=== PATIENT | female | born 1970 | race Caucasian/White ===

== ENCOUNTER 2019-12-04 04:56 | Emergency (ER) | payer OTHER ==
[~2019-12-04] VITALS: Ht 157.5 cm; Wt 94.3 kg
--- NOTE | 2019-12-04 05:00 | NUR ---
PT AAOX4. BIB EMS C/O HEARING VOICES "TELLING ME TO KILL MYSELF". ALSO C/O ABD PAIN. PT PALCED IN GOWN, ON MONITOR, AND PULSE OX. BELONINGS PLACED IN LOCKER. SITTER AT BEDSIDE. AWAITING MD FOR EVAL.
--- NOTE | 2019-12-04 05:11 | NUR ---
COMMISSION SPECIALIST AT BEDSIDE
[2019-12-04 05:21] LABS: BASOPHILS # (AUTO) 0.1 /CMM (0.0-0.2); BASOPHILS % (AUTO) 0.9 % (0.0-2.0); EOSINOPHILS % (AUTO) 0.3 % (0.0-6.0); HEMATOCRIT 43 % (33-45); HEMOGLOBIN 14.2 g/dL (11.5-14.8); LYMPHOCYTES # (AUTO) 1.7 /CMM (0.8-4.8); LYMPHOCYTES % (AUTO) 23.7 % (20.0-44.0); MEAN CORPUSCULAR HGB CONC 33 g/dl (31.0-36.0); MEAN CORPUSCULAR VOLUME 90 fL (82-100); MONOCYTES # (AUTO) 0.6 /CMM (0.1-1.30); NEUTROPHILS # (AUTO) 4.8 /CMM (1.8-8.9); NEUTROPHILS % (AUTO) 66.1 % (43.0-81.0); PLATELET COUNT (AUTO) 324 /CMM (150-450); RED BLOOD CELL COUNT(AUTO) 4.72 MIL/uL (4.0-5.2); WHITE BLOOD COUNT (AUTO) 7.2 K/uL (4.3-11.0)
[2019-12-04 05:37] LABS: CALCIUM, SERUM 9.8 mg/dL (8.5-10.1); CARBON DIOXIDE 28 mmol/L (21-32); CHLORIDE 103 mmol/L (98-107); CREATININE 0.7 mg/dL (0.6-1.3); GLUCOSE 120 mg/dL (74-106); POTASSIUM 3.5 mmol/L (3.5-5.1); SODIUM SERUM 142 mmol/L (136-145); UREA NITROGEN, BLOOD 8 mg/dL (7-18)
[2019-12-04 05:43] LABS: ALANINE AMINOTRANSFERASE 18 U/L (12-78); ALBUMIN 3.8 g/dL (3.4-5.0); ALKALINE PHOSPHATASE 80 U/L (46-116); ASPARTATE AMINOTRANSFERASE 22 U/L (15-37); BILIRUBIN,DIRECT 0.1 mg/dL (0.0-0.2); BILIRUBIN,TOTAL 0.6 mg/dL (0.2-1.0); TOTAL PROTEIN, SERUM 7.7 g/dL (6.4-8.2)
[2019-12-04 05:46] LABS: ACETAMINOPHEN 0 ug/ml (10-30); ALCOHOL, BLOOD < 3 mg/dL (0-0)
[2019-12-04] MEDS ORDERED: OLANZAPINE 5 MG TABLET PO ONE ×2 (06:30→10:30)
[2019-12-04] MEDS ORDERED: OLANZAPINE 5 MG TABLET ONE ×2 (06:37→10:12)
[2019-12-04 06:54] LABS: APPEARANCE,URINE CLEAR (CLEAR); BILIRUBIN,URINE NEGATIVE (NEGATIVE); BLOOD, URINE TRACE-INTA Ery/uL (NEGATIVE); COLOR,URINE YELLOW (YELLOW); KETONES,URINE NEGATIVE (NEGATIVE); LEUKOCYTE ESTERASE ,URINE NEGATIVE (NEGATIVE); NITRITE, URINE POSITIVE (NEGATIVE); PROTEIN,URINE NEGATIVE (NEGATIVE); UGLUCOSE NEGATIVE (NEGATIVE); UROBILINOGEN,URINE 0.2 EU/dL (0.2)
--- NOTE | 2019-12-04 07:02 | NUR ---
Patient is resting comfortably in bed. Easily aroused. VSS.
[2019-12-04 07:55] LABS: BACTERIA,URINE 3+ /HPF (None Seen); MUCUS,URINE Moderate /LPF (None Seen); RBC,URINE 0-2 /HPF (0-2); SQUAMOUS EPITHELIAL CELL,UR Many /HPF (None Seen); WBC,URINE 0-2 /HPF (0-3)
--- NOTE | 2019-12-04 10:35 | NUR ---
Social service consult requested by MD for psychiatric evaluation. Per MD notes, pt is a 49-year-old female, brought in by paramedics. Patient lives in a [id number]. Patient states she has been hearing voices to kill her self. BURN CREW MEMBER met with the pt bedside. Pt is alert and oriented x 2. Pt is not willing to participate in an assessment at this time. BURN CREW MEMBER asked pt. questions but pt refused to answer. Pt has a sitter bedside. Sitter informed BURN CREW MEMBER that pt has been banging her head on the side rails. Sitter placed padding on the side rails for safety. Sitter also informed SW that pt. urinated on self. Pt will be given Zyprexa per Dr Pride and business and services instructor blackjack supervisor Vashti Pereira.
--- NOTE | 2019-12-04 11:36 | NUR ---
MEDICAL ONCOLOGIST met with the pt bedside again. Pt is more alert and oriented x 4. Pt resides at [facility]. Pt reports to feeling suicidal and willing to go voluntary. MEDICAL ONCOLOGIST contacted Juan at [facility] and initiated the process. MEDICAL ONCOLOGIST faxed clinicals to [facility] intake at . MEDICAL ONCOLOGIST updated DEBO Bella.
--- NOTE | 2019-12-04 13:50 | NUR ---
AUTO TECH received a call back from Sg at [facility] intake stating, the CRN at [facility] is at lunch and will review the clinicals once back. Nato to f/u within 1 hour.
--- NOTE | 2019-12-04 14:58 | NUR ---
RONALDO received a call from Nato at [facility] intake informing SIDE STITCHER pt has been accepted to [facility]. Accepting Dr. Cochran/Dr. Ayala. Report must be called to [phone]. SIDE STITCHER updated DEBO Bella in ED.
--- NOTE | 2019-12-04 16:06 | NUR ---
SPOKED TO FERN DONOHUE OF [facility], GIVE REPORT AFTER 1900H.
--- NOTE | 2019-12-04 16:58 | NUR ---
CALLED FARHAD AT [facility] ABOUT UPDATE. STATES WE CAN CALL [place] AFTER 40 MINS.
[2019-12-04] MEDS ORDERED: CEPHALEXIN MONOHYDRATE 500 MG CAPSULE PO ONE ×2 (17:11→17:30)
--- NOTE | 2019-12-04 18:00 | NUR ---
REPORT GIVEN TO JAYDE CALHOUN OF [facility] FOR CLARISSE.
--- NOTE | 2019-12-04 18:25 | NUR ---
CALLED CALL THE CAR FOR TRANSPORT TO [facility]. . NO ETA FOR AMBULANCE. WILL CALL BACK.
--- NOTE | 2019-12-04 18:55 | NUR ---
TAWNY CALL FROM CALL THE CAR. [facility] WILL BE TRANSPORTING PT BLS. ETA 1999. REFERENCE NUMBER [id number].
--- NOTE | 2019-12-04 20:58 | NUR ---
REPORT GIVEN TO TRANSPORT TEAM FOR CLARISSE. AND TRANSFERRING RESPONSIBILITIES.
[2019-12-04 20:59] VITALS: BP 140/86
== END 2019-12-04 21:00 ==
LOC: ER 04:57
DX: F22 Delusional disorders (principal); I10 Essential (primary) hypertension; E11.9 Type 2 diabetes mellitus without complications; Z88.8 Allergy status to other drugs, medicaments and biological substances
CPT/HCPCS: 36415; 80048; 80076; 80305; 80307; 80329; 81001; 84703; 85025; 87077; 87086; 87186; 99285; G0480; 81000-TC